=== PATIENT | female | born 1950 | race Caucasian/White ===

== ENCOUNTER 2016-08-19 13:08 | Day surgery (SDC) | payer MEDICARE, MEDICAID ==
[~2016-08-19] VITALS: Ht 160 cm; Wt 78.2 kg
[~2016-08-19 13:08] MED LIST: BYDUREON P2 MG/0.65 SC; COMBIVENT RESPIM4 GM INH; EPIPEN0.3 MG/0.3 IM; KLONOPIN1 MG PO; LEVOTHYROXINE125 MCG PO; LISINOPRIL2.5 MG PO; PAXIL40 MG PO; SINGULAIR10 MG PO; ZOCOR20 MG PO
[2016-08-19 14:22] VITALS: BP 117/58; Ht 160 cm; Wt 78.2 kg
[2016-08-19 14:38] LABS: BASOPHILS 0.2 % (0.0-2.0); HEMATOCRIT 42.8 % (36.0-48.0); HEMOGLOBIN 13.4 g/dL (12-16); IMMATURE GRANULOCYTES 0.2 % (0-5); MCH 25.2 pg (26.0-34.0); MCHC 31.3 g/dL (31.0-37.0); MCV 80.6 fL (80.0-100.0); MEAN PLATELET VOLUME 11.1 fL (7.4-10.4); MONOCYTES 6.9 % (2-11); NEUTROPHILS 59.7 % (40-80); RBC 5.31 10x6/uL (4.00-5.40); RDW 17.9 % (11.5-14.5); WBC 10.5 10x3/uL (4.8-10.8)
[2016-08-19 14:46] LABS: CALC OSMOLALITY 278 mosm/kg (275-300); CALCIUM 9.3 mg/dL (8.5-10.1); CARBON DIOXIDE 29.6 mmol/L (21.0-32.0); CHLORIDE - SERUM 105 mmol/L (98-107); CREATININE - SERUM 0.7 mg/dL (0.6-1.3); GLUCOSE 87 mg/dL (74-106); POTASSIUM - SERUM 4.2 mmol/L (3.5-5.1); SODIUM 142 mmol/L (136-145); UREA NITROGEN 4 mg/dL (7-18); eGFR NON AFRICAN AMERICAN 89 mL/min (90-120)
[2016-08-19 14:47] LABS: PLATELET COUNT 226 10x3/uL (130-400)
[2016-08-19] MEDS ORDERED: ANUSOL-HC25 MG RC (16:17)
--- NOTE | 2016-08-19 16:35 | NUR ---
FULL LIQUIDS OFFERED
--- NOTE | 2016-08-19 16:51 | NUR ---
1645- FULL LIQUIDS TOLERATED 1650- IV D/C'D, PT TOLERATED. CATHETER INTACT.
--- NOTE | 2016-08-19 17:05 | NUR ---
DISCHARGE INSTRUCTIONS COMPLETED. PAPERWORK SIGNED. PT VERBALIZED UNDERSTANDING.
--- NOTE | 2016-08-20 20:05 | OP ---
PATIENT NAME: ALISSA ESQUIVEL MEDICAL RECORD: [id number] :52 LOCATION:[facility] ADMISSION DATE: SURGEON: MICHAEL CUELLO MD DATE OF OPERATION: 08/19/2016 PROCEDURE: Colonoscopy with biopsy and polypectomy. REFERRING PHYSICIAN: Dr. Kendell Barrios. INDICATIONS: Ms. Esquivel is a pleasant 66-year-old woman who has had symptoms of left lower quadrant abdominal pain, diarrhea and hematochezia. Her last colonoscopy was in [address] Warren with findings showing diverticulosis, internal hemorrhoids a lipoma in the proximal transverse colon. She presents for outpatient colonoscopy. PREMEDICATIONS: Total IV anesthesia (propofol 520 mg); indications: History of obstructive sleep apnea, congestive heart failure, hypertension, diabetes mellitus, and asthma. INSTRUMENT: Rendeevoo videocolonoscope. PROCEDURE AND FINDINGS: After receiving informed consent, Ms. Esquivel was placed in left lateral decubitus position and sedated as per anesthesia. After achieving adequate level of sedation, digital rectal exam was performed that showed no external hemorrhoidal tags, fissures or fistulas, normal sphincter tone, no palpable rectal masses. The colonoscope was introduced per rectally and advanced to the cecum without difficulty. The cecum, IC valve, and appendiceal orifice were identified and appeared normal. As the colonoscope was withdrawn, careful inspection was made of the aly of the colon. Overall mucosa had normal vascular and fold pattern. In the transverse colon was a 2 cm nonobstructing lipoma that was biopsied. There was mild patchy erythema noted in the sigmoid colon and biopsies were taken to rule out microscopic colitis. There were 2 polyps in the sigmoid colon measuring 0.5-0.75 cm in size, sessile, removed with hot biopsy forcep technique. Retroflexion in the rectum showed moderate internal hemorrhoids, nonbleeding. A fair to good prep was present. Ms. Esquivel tolerated procedure well, no immediate complications. Withdrawal time was 12 minutes. ASSESSMENT: 1. Two sigmoid polyps status post polypectomy. 2. Transverse colon lipoma status post biopsy. 3. Minimal nonspecific erythema involving the sigmoid colon status post biopsy, rule out microscopic colitis. 4. Moderate internal hemorrhoids, source of hematochezia. RECOMMENDATIONS: 1. Follow up histopathology. 2. Avoid aspirin, nonsteroidal anti-inflammatory drugs and JEFFERY-2 inhibitors for 14 days post polypectomy. 3. Anucort HC suppositories 25 mg 1 per rectum b.i.d. for 14 days. TRANSINT:[id number] Voice Confirmation ID: [id number] DOCUMENT ID: [id number] OPERATIVE REPORT [id number] ALISSA ESQUIVEL TERRI MD at 2005 CC: KENDELL BARRIOS MD [id number] DICTATION DATE: 08/19/16 1616 MAIL ROOM CLERK: 08/19/16 1708 [facility] 08/19/16 [id number] [place] [id number]
== END 2016-08-19 17:15 | disposition home or self-care (01) ==
LOC: D.OPS 13:08
PROVIDERS: Anesthesiology
DX: D12.5 Benign neoplasm of sigmoid colon (principal); K52.9 Noninfective gastroenteritis and colitis, unspecified; K64.8 Other hemorrhoids; G47.33 Obstructive sleep apnea (adult) (pediatric); I11.0 Hypertensive heart disease with heart failure; I50.9 Heart failure, unspecified; E11.9 Type 2 diabetes mellitus without complications; J45.909 Unspecified asthma, uncomplicated

== ENCOUNTER → 2019-03-14 13:57 | Outpatient (CLI) | payer MEDICARE ==
[2016-08-19 14:22] VITALS: BMI 30.5
[~2019-03-14 13:57] MED LIST changes: +ANUSOL-HC25 MG RC
[2019-03-14 14:52] LABS: BASOPHILS 0.6 % (0-2); EOSINOPHILS 5.9 % (0-7); HEMATOCRIT 46.3 % (36.0-48.0); HEMOGLOBIN 15.5 g/dL (12-16); IMMATURE GRANULOCYTES 0.1 % (0-5); LYMPHOCYTES 37.6 % (15-50); MCH 28.6 pg (26.0-34.0); MCHC 33.5 g/dL (31.0-37.0); MCV 85.4 fL (80.0-100.0); MEAN PLATELET VOLUME 10.5 fL (7.4-10.4); MONOCYTES 6.4 % (2-11); NEUTROPHILS 49.4 % (40-80); PLATELET COUNT 185 10x3/uL (130-400); RBC 5.42 10x6/uL (4.00-5.40); RDW 16.2 % (11.5-14.5); WBC 7.2 10x3/uL (4.8-10.8)
[2019-03-14 16:20] LABS: CALC OSMOLALITY 283 mosm/kg (275-300); CALCIUM 9.3 mg/dL (8.5-10.1); CARBON DIOXIDE 25.7 mmol/L (21.0-32.0); CHLORIDE - SERUM 105 mmol/L (98-107); CREATININE - SERUM 0.7 mg/dL (0.6-1.3); GLUCOSE 115 mg/dL (74-106); POTASSIUM - SERUM 4.5 mmol/L (3.5-5.1); SODIUM 142 mmol/L (136-145); UREA NITROGEN 12 mg/dL (7-18); eGFR NON AFRICAN AMERICAN 88 mL/min (90-120)
== END | disposition home or self-care (01) ==
LOC: D.LAB 13:57
PROVIDERS: ATTEND Urology
DX: Q61.3 Polycystic kidney, unspecified (principal)

== ENCOUNTER 2020-04-26 10:55 | Emergency (ER) | payer MEDICARE ==
[~2020-04-26] VITALS: Ht 160 cm; Wt 72.3 kg
[2020-04-26 11:01] VITALS: BP 116/70; Ht 160 cm; Wt 72.3 kg
[2020-04-26] MEDS ORDERED: KLONOPIN1 MG PO (11:04)
[2020-04-26] MEDS ORDERED: JARDIANCE25 MG PO (11:05)
[2020-04-26] MEDS ORDERED: EFFEXOR75 MG PO (11:05)
[2020-04-26] MEDS ORDERED: TUDORZA PRESS400 MCG INH (11:06)
== END 2020-04-26 11:45 | disposition home or self-care (01) ==
LOC: D.ER 10:55
DX: L97.929 Non-pressure chronic ulcer of unspecified part of left lower leg with unspecified severity (principal); E11.9 Type 2 diabetes mellitus without complications; I10 Essential (primary) hypertension; R01.1 Cardiac murmur, unspecified

== ENCOUNTER 2020-11-07 11:15 | Outpatient (CLI) | payer MEDICARE ==
[2020-04-26 11:01] VITALS: BMI 28.2
[~2020-11-07 11:15] MED LIST changes: +EFFEXOR75 MG PO; +JARDIANCE25 MG PO; +TUDORZA PRESS400 MCG INH
== END 2020-11-07 11:45 | disposition home or self-care (01) ==
LOC: D.MAMMO 11:15
PROVIDERS: ATTEND Family Medicine
DX: Z12.31 Encounter for screening mammogram for malignant neoplasm of breast (principal)